=== PATIENT | female | born 1965 | race Caucasian/White ===

== ENCOUNTER 2021-04-28 15:00 | Outpatient (CLI) | payer OTHER, SELFPAY ==
[2021-04-28 15:18] VITALS: BP 131/89; PULSE 74; RESP 16; TEMP 37.1; O2SAT 98; BMI 27.3
[2021-04-28] MEDS: 0.9% Saline Lock 10 ML Syringe IV (15:20)
[2021-04-28 16:08] VITALS: BP 136/90; PULSE 69; RESP 16; TEMP 36.8; O2SAT 98
[2021-04-28 16:58] VITALS: BP 149/87; PULSE 66; RESP 16; TEMP 36.8; O2SAT 100
== END 2021-04-28 17:08 | disposition home or self-care (01) ==
LOC: MS3OUT 15:00 → MS3 15:01
PROVIDERS: PCP Internal Medicine; Referring Provider Nurse Practitioner Adult Health; Visit Provider Nurse Practitioner Adult Health
DX: Z23 Encounter for immunization (principal); U07.1 COVID-19
CPT/HCPCS: J7050; M0245; Q0245; A4216

== ENCOUNTER 2021-05-06 10:13 | Outpatient (CLI) | payer OTHER, SELFPAY ==
[2021-05-06 10:15] LABS: Bacteria 0 SEEN /hpf (None Seen); Mucous, Urine 0 SEEN /hpf (<or=2+); Squamous Epithelial Cells - UA 0 SEEN /hpf (5-10)
[2021-05-06 10:17] LABS: Color, Urine Yellow (Yellow); Glucose, Dipstick Normal (Normal); Ketone-Dipstick Negative (Negative); Leukocyte Esterase-Dipstick 500 /ul (Negative); Nitrite-Dipstick Negative (Negative); Occult Blood-Urine 150 /ul (Negative); Protein-Dipstick 15 mg/dl (Negative); Specific Gravity, Urine 1.015 (1.002-1.030); Urine Bilirubin Dipstick Negative (Negative); Urine Clarity Sl. Cloudy (Clear); Urine Urobilinogen Normal (Normal)
[2021-05-06 10:22] LABS: Red Blood Cells-Urine 0-5 SEEN /hpf (0-5); White Blood Cells 25-50 SEEN /hpf (0-5)
== END 2021-05-06 23:59 | disposition short-term general hospital (02) ==
LOC: LAB 10:13
PROVIDERS: PCP Internal Medicine; Visit Provider Physician Assistant
DX: R30.0 Dysuria (principal); R35.0 Frequency of micturition
CPT/HCPCS: 81001; 87077; 87086; 87088; 87186

== ENCOUNTER → 2021-09-13 | Outpatient (CLI) | payer OTHER, SELFPAY ==
--- NOTE | 2021-09-13 08:45 | BI_ITS ---
MAMMOGRAPHY - BILATERAL SCREENING REASON FOR EXAM: Female, 56 years old. Routine annual screening examination. PERTINENT HISTORY: Mother with breast cancer. TECHNIQUE: Digital bilateral breast med (3D mammographic acquisition) in the CC and MLO projections. 2-D mediolateral oblique (MLO) and craniocaudad (CC) views of both breasts were obtained. CAD: Full Field Digital Mammography with Computer Added Detection was performed. COMPARISON: Comparison is made with prior outside examination dated 07/20/2020. FINDINGS: Breast Composition: The breasts are heterogeneously dense, which may obscure small masses. There are no dominant masses or suspicious calcifications. Stable small benign-appearing bilateral axillary lymph nodes. No other significant abnormalities are identified. There has been no significant change since the prior study. BI/SCRN MAMM (CAD)W/MED BILAT IMPRESSION: Stable bilateral screening mammogram. Yearly follow-up mammogram recommended. (A) ASSESSMENT CATEGORY: BIRADS Category 2: Benign. A letter regarding these results will be sent to the patient by the facility within 30 days. Approximately 10% of breast cancers are not detected by mammography. A normal mammogram should not delay biopsy of a clinically suspicious abnormality. [id number] Electronically Signed: Godfrey Horner MD at 14:32 EDT ,
== END | disposition home or self-care (01) ==
LOC: OPBI 08:45
PROVIDERS: PCP Internal Medicine; Visit Provider Internal Medicine
DX: Z12.31 Encounter for screening mammogram for malignant neoplasm of breast (principal)
CPT/HCPCS: 77063; 77067

== ENCOUNTER → 2022-01-11 | Outpatient (CLI) | payer OTHER, SELFPAY ==
[2022-01-18 13:03] LABS: HPV APTIMA, High Risk Negative (Negative)
== END | disposition home or self-care (01) ==
LOC: LABSPEC 16:10
PROVIDERS: PCP Internal Medicine; Referring Provider Obstetrics & Gynecology; Visit Provider Obstetrics & Gynecology
DX: Z12.4 Encounter for screening for malignant neoplasm of cervix (principal)
CPT/HCPCS: 87624; 88175; G0145

== ENCOUNTER 2022-03-20 07:19 | Day surgery (SDC) | payer OTHER, SELFPAY ==
[2022-03-20] VITALS (7 sets, daily range): BP systolic 96–137; BP diastolic 62–84; PULSE 53–67; RESP 16; TEMP 36.3–36.7; O2SAT 94–99; BMI 30.7
--- NOTE | 2022-03-20 07:21 | H&P.OPEN ---
HPI - General HPI Narrative SAYDA GUPTA, is a 56 F who presents for screening colonoscopy. Patient had previous colonoscopy about 11 years ago due to abdominal pain/constipation within normal limits per patient. Patient denies any family history of colon cancer. Patient has bowel movements every other day denies any blood. Patient denies any chronic abdominal pains, nausea, vomiting, reflux. PFSH Medical History (Updated 03/15/22 @ 14:18 by Maci Resendez) Alcohol use Anxiety Bladder disease Chronic headaches Depression with anxiety Easy bruising History of echocardiogram HTN (hypertension) Hypertension Non-smoker Post-menopausal Preventative health care Right elbow pain Wears glasses Home Medications betamethasone valerate 0.1 % lotion 1 applic topical DAILY PRN skin irritation #60 mL 03/15/21 [Rx Last Taken Unknown] escitalopram oxalate 20 mg tablet 20 mg PO DAILY #90 tabs 03/15/21 [Rx Last Taken Unknown] lisinopril 20 mg-hydrochlorothiazide 25 mg tablet 1 tab PO DAILY #90 tabs 03/15/21 [Rx Last Taken Unknown] diclofenac sodium 3 % topical gel 1 applic topical BID 09/07/21 [History Last Taken Unknown] vibegron 75 mg tablet (Gemtesa) 75 mg PO DAILY 03/15/22 [History Last Taken Unknown] Allergy/AdvReac Type Severity Reaction Status Date / Time Sulfa (Sulfonamide Allergy Mild swelling Verified 03/20/22 08:05 Antibiotics) Family History Mother Breast cancer Father Myocardial infarction, Onset Age: 42 CVA (cerebral vascular accident) Other Diabetes Heart disease Hypertension Surgical History (Updated 01/23/22 @ 09:25 by Mildred Campoverde) History of colonoscopy Social History Smoking Status: Never smoker alcohol intake: current alcohol intake frequency: holidays/special occasions only Alcohol type: wine details: occasionally substance use type: does not use caffeine: Yes what type of physical activity do you participate in: walking frequency: 5-6 times per week additional social history: [employer] Past Medical/Surgical History Planned Operation Planned Operative Procedure/s: CSCOPE OA Previous Hospitalizations/Surgeries HX Hospitalizations: No Any Problems With Anesthesia: No You/Your Family Experience Fever (Hyperthermia) With Anes: No Cholinesterase deficiency: No Cardiovascular Hx Hypertension: Yes (CONTROLLED WITH MED) Respiratory Hx Sleep Apnea: No Hx Respiratory Tract Infection/Cold (presently): No Do You Snore Loudly (louder than talking or can be heard): Yes Do You Often Feel Tired/ Fatigued/ Sleepy Dring Daytime?: No Has Anyone Observed You Stop Breathing During Sleep?: No Result (for STOP score): Positive Smoking Status: Never smoker Neurological Hx Seizures: No Does patient have nerve stimulator: No Reproduction : No Genitourinary Hx Renal Disease: No Endocrine Hx Diabetes: No Miscellaneous Hx Cancer: No Allergies Sulfa (Sulfonamide Antibiotics) Allergy (Mild, Verified 03/20/22 08:05) swelling Discharge Is Pt Admitted From a Senior Living, or a Skilled Nursing: No After D/C, Where Do you Plan to Go: Return Home Physical Exam Const alert, oriented x3 and no apparent distress HEENT normocephalic and head/scalp atraumatic Resp normal respiratory effort Cardio regular rate GI soft to palpation and non-tender; Negative for non-distended Palpation: Negative for guarding Extremity no clubbing, cyanosis or edema Neuro CN's II-XII intact bilaterally Psych mental status grossly normal Assessment & Plan Assessment/Plan (1) Encounter for screening for malignant neoplasm of colon: Surgery Risks - Colonoscopy Risks Include but are not Limited To: Risks include but are not limited to: Bleeding, perforation requiring further surgery, inability to complete colonoscopy requiring barium enema.
[2022-03-20] MEDS: Lactated Ringers 1,000 ML 15 ML IV (08:05)
--- NOTE | 2022-03-20 09:04 | OP.COLON_ITS ---
Patient Name: Vandana Robles Procedure Date: 03/20/2022 8:22 AM Date of : 1965 Age: 56 Procedure: Colonoscopy Indications: Screening for colorectal malignant neoplasm Providers: Bárbara Singh MD Referring MD: Katina Leong MD Medicines: Monitored Anesthesia Care Patient Profile: This is a 56 year old female. Last Colonoscopy: more than 10 years ago. Complications: No immediate complications. Procedure: Pre-Anesthesia Assessment: - Prior to the procedure, a History and Physical was performed, and patient medications and allergies were reviewed. The patient's tolerance of previous anesthesia was also reviewed. The risks and benefits of the procedure and the sedation options and risks were discussed with the patient. All questions were answered, and informed consent was obtained. Prior Anticoagulants: The patient has taken no previous anticoagulant or antiplatelet agents. ASA Grade Assessment: Per anesthesia. After reviewing the risks and benefits, the patient was deemed in satisfactory condition to undergo the procedure. After I obtained informed consent, the scope was passed under direct vision. Throughout the procedure, the patient's blood pressure, pulse, and oxygen saturations were monitored continuously. The pediatric colonoscope was introduced through the anus and advanced to the cecum, identified by the appendiceal orifice, ileocecal valve and palpation. The colonoscopy was performed without difficulty. The patient tolerated the procedure well. The quality of the bowel preparation was good. Scope In: 8:32:23 AM Scope Withdrawal Time 0 hours 11 minutes 50 seconds Scope Out: 8:56:55 AM Total Procedure Duration Time 0 hours 24 minutes 32 seconds Findings: Hemorrhoids were found on perianal exam. Non-bleeding internal hemorrhoids were found. The hemorrhoids were Grade I (internal hemorrhoids that do not prolapse). The entire examined colon appeared normal. Impression: - Hemorrhoids found on perianal exam. - Non-bleeding internal hemorrhoids. - The entire examined colon is normal. - No specimens collected. Recommendation: - Discharge patient to home. - Resume previous diet. - Continue present medications. - Await pathology results. - Repeat colonoscopy in 10 years for screening purposes. Procedure Code(s): --- Professional --- G0121, PT, Colorectal cancer screening; colonoscopy on individual not meeting criteria for high risk Diagnosis Code(s): --- Professional --- Z12.11, Encounter for screening for malignant neoplasm of colon K64.0, First degree hemorrhoids CPT copyright 2017 [employer]. All rights reserved. The codes documented in this report are preliminary and upon hospital coder review may be revised to meet current compliance requirements. MD Bárbara Davalos MD 03/20/2022 9:04:41 AM This report has been signed electronically. Number of Addenda: 0 Note Initiated On: 03/20/2022 8:22 AM
--- NOTE | 2022-03-20 09:06 | OP.CCLET_ITS ---
03/20/2022 Katina Leong MD [address] [place] [address] [place] [address] Re : Colonoscopy procedure for Vandana Travis Dear Dr. Leong This procedure was performed on Sunday, March 20, 2022. My impressions and recommendations are as follows: Impressions : - Hemorrhoids found on perianal exam. - Non-bleeding internal hemorrhoids. - The entire examined colon is normal. - No specimens collected. Recommendations : - Discharge patient to home. - Resume previous diet. - Continue present medications. - Await pathology results. - Repeat colonoscopy in 10 years for screening purposes. My findings are described in the full procedure note, which is enclosed. If I can be of further assistance, please feel free to contact me at Doctor phone number(s): , Work: . Sincerely, MD Bárbara Davalos MD 03/20/2022 9:04:41 AM This report has been signed electronically.
== END 2022-03-20 09:57 | disposition home or self-care (01) ==
LOC: EN 07:19 → AC 07:20
PROVIDERS: PCP Internal Medicine; Referring Provider Internal Medicine; Visit Provider Surgery
PROC: 0DJD8ZZ Inspection of Lower Intestinal Tract, Via Natural or Artificial Opening Endoscopic (ICD-10-PCS; CPT 45378; principal; 2022-03-20 08:25)
DX: Z12.11 Encounter for screening for malignant neoplasm of colon (principal); K64.0 First degree hemorrhoids; I10 Essential (primary) hypertension; N32.9 Bladder disorder, unspecified; Z86.16 Personal history of COVID-19; Z79.899 Other long term (current) drug therapy
CPT/HCPCS: 45378; J7120; J2405

== ENCOUNTER → 2022-04-16 | Outpatient (CLI) | payer OTHER, SELFPAY ==
[2022-04-16 07:52] LABS: Hemoglobin A1c 5.8 % (3.8-5.6)
== END | disposition home or self-care (01) ==
LOC: LAB 07:22
PROVIDERS: PCP Internal Medicine; Referring Provider Internal Medicine; Visit Provider Internal Medicine
DX: E66.9 Obesity, unspecified (principal); Z68.30 Body mass index [BMI] 30.0-30.9, adult
CPT/HCPCS: 36415; 83036

== ENCOUNTER → 2022-04-17 | Outpatient (CLI) | payer OTHER, SELFPAY | END | disposition home or self-care (01) | LOC: LABSPEC 08:00 | PROVIDERS: PCP Internal Medicine; Visit Provider Internal Medicine | DX: K92.1 Melena (principal); R19.7 Diarrhea, unspecified | CPT/HCPCS: 87493; 87506 ==

== ENCOUNTER → 2022-04-19 | Outpatient (CLI) | payer OTHER, SELFPAY ==
[2022-04-19 17:58] LABS: Mucous, Urine 0 SEEN /hpf (<or=2+)
[2022-04-19 18:52] LABS: Color, Urine Amber (Yellow); Glucose, Dipstick Normal (Normal); Ketone-Dipstick Negative (Negative); Leukocyte Esterase-Dipstick 500 /ul (Negative); Nitrite-Dipstick Positive (Negative); Occult Blood-Urine 10 /ul (Negative); Protein-Dipstick 30 mg/dl (Negative); Urine Clarity Clear (Clear); Urine Urobilinogen 8 mg/dl (Normal)
[2022-04-19 19:08] LABS: Urine Bilirubin Dipstick 6 mg/dL (Negative)
[2022-04-19 19:42] LABS: Bacteria RARE /hpf (None Seen); Red Blood Cells-Urine 0 SEEN /hpf (0-5); Squamous Epithelial Cells - UA 0-5 SEEN /hpf (5-10); White Blood Cells 5-10 SEEN /hpf (0-5)
== END | disposition home or self-care (01) ==
PROVIDERS: PCP Internal Medicine; Visit Provider Physician Assistant
DX: R30.0 Dysuria (principal)
CPT/HCPCS: 81001; 87086; 87088

== ENCOUNTER → 2022-05-10 | Outpatient (CLI) | payer OTHER, SELFPAY | END | disposition home or self-care (01) | PROVIDERS: PCP Internal Medicine; Visit Provider Internal Medicine | DX: G47.10 Hypersomnia, unspecified (principal) | CPT/HCPCS: 95810 ==

== ENCOUNTER 2022-05-15 10:09 | Outpatient (RCR) | payer OTHER, SELFPAY | END 2022-05-15 10:10 | disposition home or self-care (01) | LOC: PT 10:09 | PROVIDERS: PCP Internal Medicine; Referring Provider Urology; Visit Provider Urology | DX: R10.2 Pelvic and perineal pain (principal) ==

== ENCOUNTER → 2022-05-25 | Outpatient (CLI) | payer OTHER, SELFPAY | END | disposition home or self-care (01) | LOC: SL 13:04 | PROVIDERS: PCP Internal Medicine; Visit Provider Internal Medicine | DX: R06.83 Snoring (principal); R51.9 Headache, unspecified; R40.0 Somnolence; G47.30 Sleep apnea, unspecified ==

== ENCOUNTER 2022-06-26 16:30 | Outpatient (RCR) | payer OTHER, SELFPAY ==
--- NOTE | 2022-02-20 12:59 | HP.PTEVAL ---
Patient's Visit Information SAYDA GUPTA is a 56 year old F referred to Physical Therapy by Dr. Marilyn Ashraf MD with a diagnosis of MIXED INCONTINENCE. Date of Evaluation: 02/20/22 Physical Therapist: Natasha Mcgowan PT, Cert MDT - Visit Plan Frequency: 1x/Week Duration: 8-10 WKS Plan: MANUAL PF THERAPY FOR STRENGTHENING, LENGTHENING/RELAXATION AND ENDURANCE TRAINING. URINARY RETENTION, URGENCY AND STRESS INCONTINENCE EDUCATION. CONSIDER INTERNAL OR EXTERNAL PF BIOFEEDBACK WITH EQUIPMENT. TRAINING IN COORDINATION OF PELVIC FLOOR MUSCULATURE WITH CORE (TRANSVERSE ABDOMINUS) STRENGTHENING. TRAINING IN ABDOMINAL CAVITY PRESSURE MGMT WITH ADL'S TO DECREASE ANY URINARY LEAKING. CORE STRENGTHENING. ROSA LE ROM, STRETCHING AND STRENGTHEING. HEP INSTRUCTION. 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 Present symptoms: SOME LOW BACK PAIN BUT REPORTS IF SHE TAKES CARE OF IT IT GOES AWAY. REPORTS SHE IS HERE FOR URINARY LEAKING. PATIENT ALSO REPORTS URGE INCONTINENCE. Present since: YEARS. Pain Scale: LBP: WORST 5/10, LEAST 0/10. Currently: 0/10. Getting better, worse, or staying the same: LBP IS UNCHANGING. INCONTINENCE IS GETTING WORSE. Commenced as a result of: PATIENT RELATES HER LBP TO BEING ON HER FEET ALL DAY AT WORK. NO APPARENT REASON FOR THE INCONTINENCE. Worse: INCONTINENCE: TRIPPING ON THE SIDEWALK, STUMBLING, COUGHING, SNEEZING, LAUGHING, THROWING A BALL, SOMETIMES JUST WALKING HOME FROM WORK. Better: NEW MEDICINE PRESCRIBED ABOUT 2 WKS AGO. Disturbed sleep: NO. Previous history/Previous treatment: PELVIC FLOOR THERAPY X 1-2 SESSIONS 2019. NO BACK SURGERY, NO SEBAS'S. LBP HAS BEEN SELF MANAGED. Treatment this episode: MEDICINE PRESCRIBED BY DR. ASHRAF. Gait: NORMAL. Bowel Dysfunction: NO. Accidents: NO MAJOR MVA'S. Unexplained weight loss: NO. Imaging: PATIENT REPORTS RECENT TESTING SHOWS GOOD BLADDER EMPTYING. PMH/Recent major surgery: Depression with anxiety. HTN (hypertension). UNREPAIRED R ACL TEAR. - Objective Sitting/Standing Posture: FH. RSH'S. NORMAL LUMBAR LORDOSIS. NO RELEVENT LATERAL SHIFT. Active Correction of posture: BETTER. Other Observations: INDEP GAIT AND TRANSFERS. Sensory deficit: ROSA LE LIGHT TOUCH SENSATION GROSSLY INTACT AND SYMMETRICAL. ROM deficit: ROSA LE'S WFL EXCEPT. Motor deficit: ROSA LE'S GROSSLY 5/5 WITH MMT'ING. Dural Signs: NEGATIVE ROSA LE'S. Lumbar mvmt loss: flex - NIL. ext - MOD. R SG - MOD. L SG - MOD. PATIENT DENIES INCREASED PAIN WITH LUMBAR ROM TESTING. Core strength: FAIR. Palpation: NO ACUTE LOW BACK OR HIP TENDERNESS WITH EXTERNAL PALPATION. INTERNAL MANUAL PELVIC FLOOR EXAM REVEALS 3/5 STRENGTH WITH 4 SEC ENDURANCE X 4 REPS. NO TENDERNESS WITH PALPATION BUT ROSA HIP ADDUCTOR TIGHTNESS EVIDENT. TREATMENT: NEUROMUSCULAR REEDUCATION - RETRAINING OF MVMT AND POSTURE FOR SITTING, LYING AND STANDING ACTIVITIES. - Goals Goal 1:: DECREASE URINARY LEAKAGE EPISODES TO 2 OR LESS PER DAY Goal Time Frame: 4-6 Weeks Goal 2:: PATIENT WILL SUCCESSFULLY DELAY VOIDING FOR 30 MINUTES WHEN URGENCY OCCURS Goal Time Frame: 2-4 Weeks Goal 3:: PATIENT WILL HAVE INCREASED PELVIC FLOOR MUSCLE STRENGTH GRADE TO 5/5 Goal Time Frame: 8-12 Weeks Goal 4:: PATIENT WILL DEMONSTRATE 10 CONSISTENT AND CONSECUTIVE 10 SECOND PELVIC FLOOR MUSCLE CONTRACTIONS TO DEMONSTRATE IMPROVED PELVIC FLOOR ENDURANCE. Goal Time Frame: 8-12 Weeks Goal 5:: DEVELOP HEALTHY FLUID INTAKE HABITS AND IMPROVE BLADDER CAPACITY Goal Time Frame: 4-6 Weeks Goal 6:: PATIENT WILL BE INDEP WITH A HEP/HOME INSTRUCTIONS FOR CONTINUED IMPROVEMENT ONCE FORMAL PHYSICAL THERAPY CONCLUDES Goal Time Frame: 8-12 Weeks - Anticipated Interventions Patient/Client Instruction: Educate patient on: Condition, Plan of Care, Risk Factors For the Purpose of:: To improve self management Therapeutic Exercise to Include: Strength training, Endurance training, Postural training, Flexibilty training, Neuromotor development For the Purpose of:: To improve muscle performance and motor function, To increase tolerance to activity/condition/position, To improve ability of physical actions for home/community/work/leisure Thank you for the opportunity to evaluate your patient. For Medicare and Medicare HMO plans, please review the plan of care and approve it. It will need to be FAXED BACK to us at [phone] for Medicare purposes. For Medicare only, by signing this I certify the plan of care. Please let me know if there are questions or concerns regarding this plan of care. Physician Signature: Date:
--- NOTE | 2022-05-04 09:26 | HP.PT.NRP ---
SAYDA GUPTA was seen in my office for initial evaluation on 02/20/22. The following Plan of Care was established for this patient: Initial Frequency: 1x/Week Initial Duration: 8-10 WKS Patient/Client Instruction: Educate patient on: Condition, Plan of Care, Risk Factors For the Purpose of:: To improve self management Therapeutic Exercise to Include: Strength training, Endurance training, Postural training, Flexibilty training, Neuromotor development For the Purpose of:: To improve muscle performance and motor function, To increase tolerance to activity/condition/position, To improve ability of physical actions for home/community/work/leisure This patient was last seen in our office 02/20/22. Pertinent comments regarding their Physical therapy will appear below: This patient has not returned to Physical Therapy and is appropriate to return to MD for further follow-up as needed. At this point I will be discontinuing this patient from physical therapy. I would be happy to see this patient again in the future if found appropriate by the physician. Thank you! Natasha Mcgowan, PT, Cert MDT
--- NOTE | 2022-08-01 11:06 | HP.PT.NRP ---
SAYDA GUPTA was seen in my office for initial evaluation on 02/20/22. The following Plan of Care was established for this patient: Initial Frequency: 1x/Week Initial Duration: 8-10 WKS Patient/Client Instruction: Educate patient on: Condition, Plan of Care, Risk Factors For the Purpose of:: To improve self management Therapeutic Exercise to Include: Strength training, Endurance training, Postural training, Flexibilty training, Neuromotor development For the Purpose of:: To improve muscle performance and motor function, To increase tolerance to activity/condition/position, To improve ability of physical actions for home/community/work/leisure This patient was last seen in our office 06/26/22. Pertinent comments regarding their Physical therapy will appear below: This patient has not returned to Physical Therapy and is appropriate to return to MD for further follow-up as needed. At this point I will be discontinuing this patient from physical therapy. I would be happy to see this patient again in the future if found appropriate by the physician. Thank you! Natasha Mcgowan, PT, Cert MDT
== END 2022-06-26 23:59 | disposition home or self-care (01) ==
LOC: PT 16:30
PROVIDERS: PCP Internal Medicine; Referring Provider Urology; Visit Provider Urology
DX: N39.46 Mixed incontinence (principal)
CPT/HCPCS: 97162; 97530

== ENCOUNTER → 2022-07-18 | Outpatient (CLI) | payer OTHER, SELFPAY ==
--- NOTE | 2022-07-18 08:55 | RAD_ITS ---
STUDY: X-RAY - LEFT KNEE REASON FOR EXAM: Female, 57 years old. Left knee pain after riding a bike. TECHNIQUE: 4 view(s) of the knee. COMPARISON: None. FINDINGS: Normal visualized distal femur. Normal visualized proximal tibia and fibula. Normal proximal tibiofibular articulation. There is no acute fracture, dislocation or destructive osseous pathology. There is mild degenerative arthrosis of the medial femorotibial compartment. Normal lateral femorotibial compartment. There is mild degenerative arthrosis of the patellofemoral articulation. There is no demonstrated joint effusion. The soft tissue structures are unremarkable. RAD/Knee 4 or More Views IMPRESSION: Degenerative arthrosis. Electronically Signed: Marlo Sheikh DO at 16:50 EDT ,
== END | disposition home or self-care (01) ==
LOC: RAD 08:48
PROVIDERS: PCP Internal Medicine; Visit Provider Internal Medicine
DX: M25.562 Pain in left knee (principal)
CPT/HCPCS: 73564

== ENCOUNTER → 2022-09-12 | Outpatient (CLI) | payer OTHER, SELFPAY | END | disposition home or self-care (01) | LOC: MTRAD 10:40 | PROVIDERS: PCP Internal Medicine; Referring Provider Chiropractor; Visit Provider Chiropractor | DX: M50.30 Other cervical disc degeneration, unspecified cervical region (principal); M99.05 Segmental and somatic dysfunction of pelvic region; M99.03 Segmental and somatic dysfunction of lumbar region | CPT/HCPCS: 72110 ==

== ENCOUNTER → 2022-09-29 | Outpatient (CLI) | payer OTHER, SELFPAY ==
--- NOTE | 2022-09-29 10:50 | BI_ITS ---
MAMMOGRAPHY - BILATERAL SCREENING REASON FOR EXAM: Female, 57 years old. Routine annual screening examination. PERTINENT HISTORY: Mother with breast cancer. TECHNIQUE: Digital bilateral breast med (3D mammographic acquisition) in the CC and MLO projections. 2-D mediolateral oblique (MLO) and craniocaudad (CC) views of both breasts were obtained. CAD: Full Field Digital Mammography with Computer Added Detection was performed. COMPARISON: Comparison is made with prior study dated September 13, 2021. FINDINGS: Breast Composition: The breasts are heterogeneously dense, which may obscure small masses. There are no dominant masses or suspicious calcifications. Stable small benign-appearing bilateral axillary lymph nodes. No other significant abnormalities are identified. There has been no significant change since the prior study. BI/SCRN MAMM (CAD)W/MED BILAT IMPRESSION: Stable bilateral screening mammogram. Yearly follow-up mammogram recommended. (A) ASSESSMENT CATEGORY: BIRADS Category 2: Benign. A letter regarding these results will be sent to the patient by the facility within 30 days. Approximately 10% of breast cancers are not detected by mammography. A normal mammogram should not delay biopsy of a clinically suspicious abnormality. [id number] Electronically Signed: Godfrey Horner MD at 12:44 EDT ,
== END | disposition home or self-care (01) ==
LOC: OPBI 10:49
PROVIDERS: PCP Internal Medicine; Referring Provider Obstetrics & Gynecology; Visit Provider Obstetrics & Gynecology
DX: Z12.31 Encounter for screening mammogram for malignant neoplasm of breast (principal); Z80.3 Family history of malignant neoplasm of breast
CPT/HCPCS: 77063; 77067

== ENCOUNTER → 2022-12-01 | Outpatient (CLI) | payer OTHER, SELFPAY ==
--- NOTE | 2022-12-01 11:30 | RAD_ITS ---
STUDY: X-RAY - RIGHT KNEE REASON FOR EXAM: Female, 57 years old. Pain following injury. TECHNIQUE: 4 view(s) of the knee. COMPARISON: None. FINDINGS: Normal visualized distal femur. Normal visualized proximal tibia and fibula. Normal proximal tibiofibular articulation. Normal medial femorotibial compartment. Normal lateral femorotibial compartment. Normal patellofemoral articulation. The soft tissue structures are unremarkable. RAD/Knee 4 or More Views IMPRESSION: Normal x-ray examination of the knee. Electronically Signed: Godfrey Horner MD at 12:02 EDT ,
== END | disposition home or self-care (01) ==
LOC: MTRAD 11:28
PROVIDERS: PCP Internal Medicine; Referring Provider Physician Assistant; Visit Provider Physician Assistant
DX: M25.561 Pain in right knee (principal)
CPT/HCPCS: 73564

== ENCOUNTER → 2022-12-27 | Outpatient (CLI) | payer OTHER, SELFPAY ==
--- NOTE | 2022-12-27 15:07 | MRI_ITS ---
EXAM: MR RIGHT LOWER EXTREMITY WITHOUT INTRAVENOUS CONTRAST, KNEE CLINICAL INDICATION: pain TECHNIQUE: Multiplanar and multisequence MR images of the right knee without intravenous contrast. COMPARISON: No relevant prior studies available. FINDINGS: BONES/JOINTS: Moderate joint effusion. Subchondral marrow signal alterations of the patella reflecting overlying chondral disease. No other marrow signal alterations. No malalignment. EXTENSOR MECHANISM: Unremarkable. MEDIAL MENISCUS: Torn posterior root ligament of the medial meniscus with associated 4 mm of peripheral extrusion of the body segment of the medial meniscus. LATERAL MENISCUS: Unremarkable. MEDIAL CAPSULE/SUPPORTING STRUCTURES: Unremarkable. Intact. LATERAL CAPSULE/SUPPORTING STRUCTURES: Unremarkable. Lateral collateral ligamentous complex, inclusive of the popliteal tendon, are intact. ANTERIOR CRUCIATE LIGAMENT: Unremarkable. Intact. POSTERIOR CRUCIATE LIGAMENT: Unremarkable. Intact. MUSCLES: Unremarkable. CARTILAGE: Areas of the up to high-grade chondral loss/disease at the median ridge of the patella extending to the adjacent central aspect of the medial and lateral patellar facet with subchondral cystic changes. FLUID: Moderate suprapatellar joint effusion; Gee''s cyst measuring 7.2 x 2.9 cm with evidence of inferior leakage or rupture. MRI/Lower Ext Joint Only (Routine) IMPRESSION: 1. Torn posterior root ligament of the medial meniscus with associated 4 mm of peripheral extrusion of the body segment of the medial meniscus. 2. Moderate suprapatellar joint effusion and Gee''s cyst cyst measuring 7.2 x 2.9 cm with evidence of inferior leakage or rupture. Electronically Signed: Michael Uribe MD at 21:48 EDT ,
== END | disposition home or self-care (01) ==
LOC: MRI 14:53
PROVIDERS: PCP Internal Medicine; Referring Provider Physician Assistant; Visit Provider Physician Assistant
DX: M23.91 Unspecified internal derangement of right knee (principal); M25.561 Pain in right knee
CPT/HCPCS: 73721

== ENCOUNTER 2023-01-04 15:00 | Outpatient (RCR) | payer OTHER, SELFPAY ==
--- NOTE | 2022-11-01 19:41 | HP.PTEVAL ---
Patient's Visit Information Visit Information Visit Information: SAYDA GUPTA is a 57 year old F referred to Physical Therapy by Dr. Thom Chandra MD with a diagnosis of L knee OA. Date of Evaluation: 11/01/22 Physical Therapist: Dixon Guerra DPT Visit Plan Frequency: 2x /Week Duration: 4 Weeks Plan: Start with progressive ROM, add in quad, HS and glute medius strengthening. Add in HS, quad and hip flexor stretching. Subjective Subjective: Pt. is here today for her initial evaluation with diagnosis of Unilateral primary knee OA, L knee. Pt. repots having increased pain for a few months now. She had a flare up, but was unsure what caused it. She saw ortho who recommended gel injections. She has had 2 at this point in time which she reports having been helpful, pt. to have 3rd tomorrow. Pt. denies N/T. She had meniscus surgery on her RLE, years ago. Pt. reports increased pain with prolonged standing, stairs, squatting and lunging. 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 Pt. did do some biking, not aggresively and tolerated very well on her vacation trip. Pt. is interested in being instructed in exercises to increase her LE strength in order to progress back to all daily and recreational activities without limitations. Pain L knee: Pain Intensity (Out of 10): 0 Pain Intensity Range: 4 Objective Objective: POSTURE: Pt. has fairly normal posture in stance. NO major valgus or varus. She does has slight lateral wt. shift to RLE in stance with slight lack in TKE on L side. PALPATION: Pt. had no pain with palpation throughout L knee joint line. No popliteal pain with palpation. NEURO: normal throughout BLEs. ROM: L knee: 0-4-124deg. R knee 0-0-129deg. Pt. has tight HS and hip flexors bilaterally MMT: RLE: 5/5 throughout. LLE: ankle: 5/5 throughout; knee: ext 4+/5, flexion 4+/5; hip: flexion 4+/5, abd 4+/5. ext 4+/5. GAIT: pt. ambulates with fairly normal gait pattern, slight decrease in R step length. No major varus/valgus in stance phase of LLE. STAIRS: Pt. has increased pain with descending during L stance phase. Balance/Special Test Scores Lower Extremity Functional Score: 55 Goals Goal 1:: LTG: pt. to be I with HEP. Goal Time Frame: 4-6 Weeks Goal 2:: STG: Pt. to have full L knee ROM symmetrical to R knee without increase in symptoms. Goal Time Frame: 2 Weeks Goal 3:: LTG: Pt to have 5/5 strength throughout BLEs. Goal Time Frame: 4-6 Weeks Goal 4:: LTG: Pt. to have normal gait pattern without increase in symptoms. Goal Time Frame: 4-6 Weeks Goal 5:: LTG: pt. to complete all work activities without increase in symptoms. Goal Time Frame: 4-6 Weeks Rehabilitation Potential Physical Therapy Diagnosis: Pt. has signs and symptoms consistent with L knee OA. Pt. has marked limited end range flexion and extension as well has some LLE weakness of her quads, HS and glute medius. Pt. would benefit from PT to address the above limitations progressing back to all reactional and work activities without limitations. Rehabilitation Potential: Good Anticipated Interventions Patient/Client Instruction: Educate patient on: Condition, Plan of Care, Risk Factors and Benefits of Fitness Program For the Purpose of:: To improve decision making, To facilitate caregiver knowledge, To improve self management, To prevent re-injury and To improve ability to perform tasks related to life management Therapeutic Exercise to Include: Coordination, Body mechanics, Flexibilty training, Passive ROM, Active ROM and Dynamic Lumbar Stabilization For the Purpose of:: To decrease pain, To increase ROM, To improve nutrient delivery to tissue, To increase oxygenation perfusion, To improve muscle performance and motor function, To improve gait and locomotor functions, To improve health of tissue, To decrease soft tissue restriction and To increase flexibility/ROM Text: Thank you for the opportunity to evaluate your patient. For Medicare and Medicare HMO plans, please review the plan of care and approve it. It will need to be FAXED BACK to us at [phone] for Medicare purposes. For Medicare only, by signing this I certify the plan of care. Please let me know if there are questions or concerns regarding this plan of care. Physician Signature: Date:
== END 2023-01-04 19:00 | disposition home or self-care (01) ==
LOC: PT 15:00
PROVIDERS: PCP Internal Medicine; Referring Provider Orthopaedic Surgery Sports Medicine; Visit Provider Orthopaedic Surgery Sports Medicine
DX: M17.12 Unilateral primary osteoarthritis, left knee (principal)
CPT/HCPCS: 97110; 97161

== ENCOUNTER 2023-04-05 17:48 | Emergency (ER) | payer OTHER, SELFPAY ==
[2023-04-05 17:50] VITALS: BP 139/98; PULSE 91; RESP 15; TEMP 36.4; O2SAT 98; BMI 29.2
--- NOTE | 2023-04-05 18:25 | ED.RN ---
NO OLD EKG
[2023-04-05 18:38] LABS: Absolute Lymphocyte Count 1.26 X10^3/uL (0.83-4.51); Absolute Neutrophil Count 2.6 X10^3/uL (2.0-7.7); Basophil# 0.02 X10^3/uL; Basophil% 0.5 % (0-1); Hematocrit 37.6 % (37-47); Hemoglobin 12.6 g/dL (12.0-15.0); Lymphocyte # 1.26 X10^3/ul (0.83-4.51); Mean Corp Hgb Conc 33.5 g/dL (32-36); Mean Corpuscular Hgb 29.3 pg (27.0-32.0); Mean Corpuscular Volume 87.4 fL (81-99); Mean Platelet Vol. 9.9 fl (6.2-12.0); Monocyte# 0.41 X10^3/uL; Monocyte% 9.4 % (0-10); NRBC Flagged by Analyzer 0 % (0-5); Neutrophil # 2.64 X10^3/uL (2.7-7.7); Neutrophil % 60.9 % (47-70); Platelet Count 289 K/mm3 (150-450); RBC Distribution Width CV 12.9 % (11.6-14.6); RBC Distribution Width SD 40.6 fl (35.1-43.9); White Blood Count 4.3 K/mm3 (4.4-11.0)
[2023-04-05 18:53] LABS: Anion Gap 1 (5-15); BUN 18 mg/dL (7-18); BUN/Creat Ratio 22.4 RATIO (10-20); Calcium,Total 9.2 mg/dL (8.5-10.1); Chloride 108 mmol/L (98-107); EST Glomerular Filtration Rate 78 mL/min (>60); Est Glom Filt Rate - Afr Amer 94 mL/min (>60); Estimated Creatinine Clearance 81.08 ml/min; Glucose 95 mg/dL (74-106); Potassium 4.2 mmol/L (3.5-5.1); Sodium Level 138 mmol/L (136-145)
[2023-04-05 18:58] LABS: Prothrombin Time (Protime)PT. 12.8 SECONDS (11.7-14.9)
[2023-04-05 20:36] VITALS: BP 128/87; PULSE 82; RESP 16; O2SAT 99
[2023-04-05 22:00] VITALS: BP 032/74; BP 132/74; PULSE 80; RESP 16; O2SAT 100
--- NOTE | 2023-04-05 23:49 | EDS_ITS ---
HPI History of Present Illness Chief Complaint: Abn Labs Narrative Narrative: 57-year-old female presenting with headaches which seem to be worse in the evenings. Recent history of hyponatremia. She states that the lowest it has been is about 128. Patient reports that she does exercise and she does drink a lot of water. She does not drink as much energy drinks and electrolyte replacement. She states that she recently had this lab work which showed a hyponatremia and with her headaches she decided to call her PCP who told her to come to the emergency room out of concern for increased intracranial pressure. Patient states she does not have a headache now. She is not having morning headaches. No history of migraines. No fevers or chills. She again notes that her headaches are worse at the end of the day after working. She does also state that she has worked some long days up to 14 hours. Patient also relates an episode of near syncope which happened over the course of last week however apparently she had been using some stool softeners and was trying to the bathr oom and had some increased intra-abdominal pressure which caused her to feel near syncopal. They checked her blood pressure at home and it was in the 80s. This resolved and she has not had a return this. No chest pain or shortness of breath. Again no fevers or chills. She states she feels well currently. [facility] Medical History Alcohol use Anxiety Bilateral knee pain Bladder disease Bloody stools Borderline type 2 diabetes mellitus Chronic headaches CPAP (continuous positive airway pressure) dependence Depression with anxiety Diarrhea Easy bruising History of echocardiogram HTN (hypertension) Hypersomnolence Hypertension Left knee pain Migraines Non-smoker Obesity (BMI 30-39.9) FRANKLYN (obstructive sleep apnea) Osteoarthritis of left knee Post-menopausal Psoriasis Right elbow pain Sleep apnea Wears glasses Home Medications clobetasol 0.05 % scalp solution 1 applic topical QAM AND QPM #50 mL 03/31/22 [Rx Last Taken Unknown] diclofenac sodium 3 % topical gel 2 g topical BID PRN pain #100 grams 11/29/22 [Rx Last Taken Unknown] estradiol 0.01% (0.1 mg/gram) vaginal cream See Rx Instructions vaginal .COMPLEX #42.5 grams 01/16/23 [Rx Last Taken Unknown] lisinopril 20 mg-hydrochlorothiazide 25 mg tablet 1 tab PO DAILY #90 tabs 02/02/23 [Rx Last Taken Unknown] escitalopram oxalate 20 mg tablet 10 mg PO DAILY 04/05/23 [History Last Taken Unknown] lisinopril 20 mg tablet 20 mg PO DAILY 04/05/23 [History Last Taken Unknown] meloxicam 15 mg tablet 15 mg PO DAILY PRN pain 04/05/23 [History Last Taken Unknown] Allergy/AdvReac Type Severity Reaction Status Date / Time Sulfa (Sulfonamide Allergy Mild swelling Verified 04/05/23 17:50 Antibiotics) Family History Mother Breast cancer Father Myocardial infarction, Onset Age: 42 CVA (cerebral vascular accident) Other Diabetes Heart disease Hypertension Surgical History History of colonoscopy Social History current occupational status: employed 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 Smoking Status: Never smoker alcohol intake: current alcohol intake frequency: a few times a week Alcohol type: wine details: occasionally substance use type: does not use caffeine: Yes what type of physical activity do you participate in: walking frequency: 5-6 times per week additional social history: - Keyshawn [employer]OLGU[employer] [facility] ED Constitutional Constitutional ED: Denies chills, fever(s) or sweats Eyes Eyes: Denies blurry vision or change in vision ENT ENT ED: Denies ear pain or sore throat Cardiovascular Cardiovascular: Denies chest pain, palpitations or racing heartbeat Respiratory/Chest Respiratory/Chest: Denies cough, dyspnea or sputum Gastrointestinal Gastrointestinal: Denies abdominal pain, constipation, diarrhea, nausea or vomiting Genitourinary Genitourinary ED: Denies dysuria, hematuria or urinary frequency Musculoskeletal Musculoskeletal: Denies arthralgias, myalgias or neck pain Integumentary Denies abscess, Abrasions or rash Neurologic Neurologic: Reports headache(s); Denies paresthesias or weakness Psychiatric Psychiatric: Denies anxiety, depression, suicidal ideation or suicidal thoughts Endocrine Endocrinology: Denies polydipsia or polyuria EXAM Physical Exam Const Vital Signs: 04/05/23 17:50 04/05/23 20:23 04/05/23 20:36 Temperature 97.6 F L Temperature Source Temporal Pulse Rate 91 82 Respiratory Rate 15 16 Respiratory Pattern Normal Blood Pressure 139/98 H 128/87 H Blood Pressure Mean 111 100 Pulse Ox 98 99 Oxygen Delivery Method Room Air Room Air 04/05/23 22:00 04/05/23 22:00 Temperature Temperature Source Pulse Rate 80 80 Respiratory Rate 16 16 Respiratory Pattern Blood Pressure 132/74 H 032/74 Blood Pressure Mean 93 60 Pulse Ox 100 100 Oxygen Delivery Method Positive well nourished General Appearance ED: NAD; Negative for pallor HEENT Reports moist mucous membranes Negative for trauma Eyes PERRL and EOMs intact bilaterally Neck no lymphadenopathy Chest Wall inspection of chest normal Resp normal respiratory effort and clear to auscultation bilaterally Auscultation: Negative for rales, rhonchi or wheezes Cardio regular rate and regular rhythm Neuro oriented x3 and CN's II-XII intact bilaterally Sensorium / Orientation: alert Psych mental status grossly normal Skin no rashes or lesions noted General Skin Exam: Negative for jaundice or pallor MDM MDM MDM Narrative Medical decision making narrative: 57-year-old well-appearing female presenting with resolved headache and recent history of hyponatremia. Patient states she has been increasing her salt in her diet. CBC and BMP are unremarkable today her sodium appears to be normal. On examination she has no focal neurologic deficit or lateralizing signs or symptoms. Strength 5/5 throughout. Sensation intact throughout. Patient denies headache. Exam otherwise unremarkable. Counseled patient I do not believe she needs a CT scan of her head which was what she was initially sent for. Counseled her that if she is going to continue to drink plenty of water that she should have some electrolyte replacement as well and she sounds understanding of this. Patient will be discharged home in stable condition. Impression: 1. Headaches 2. history of hyponatremia Lab Data Labs: Laboratory Results - last 24 hr 04/05/23 18:30 WBC 4.3 L RBC 4.30 Hgb 12.6 Hct 37.6 MCV 87.4 MCH 29.3 MCHC 33.5 RDW Std Deviation 40.6 RDW Coeff of Garth 12.9 Plt Count 289 MPV 9.9 Immature Gran % (Auto) 0.200 Neut % (Auto) 60.9 Lymph % (Auto) 29.0 Lipscomb % (Auto) 9.4 Eos % (Auto) 0.0 Baso % (Auto) 0.5 Absolute Neuts (auto) 2.6 Absolute Lymphs (auto) 1.26 Nucleated RBC % 0 PT 12.8 INR 1.0 Sodium 138 Potassium 4.2 Chloride 108 H Carbon Dioxide 29.0 Anion Gap 1 L BUN 18 Creatinine 0.80 Estim Creat Clear Calc 81.08 Est GFR (MDRD) Af Amer 94 Est GFR (MDRD) Non-Af 78 BUN/Creatinine Ratio 22.4 H Glucose 95 Calcium 9.2 Discharge Plan Triage Chief Complaint: Abn Labs ED Provider: Soto Teresa Dx/Rx/DC Orders Instructions: ED Hyponatremia Prescriptions: No Action clobetasol 0.05 % solution 1 applic topical QAM AND QPM Qty: 50 1RF estradiol 0.01 % (0.1 mg/gram) cream See Rx Instructions vaginal .COMPLEX Qty: 42.5 2RF Hold Instructions: NEVER USED IT Rx Instructions: small amount as directed vaginal every other day X 4 weeks then twice a week; diclofenac sodium 3 % gel 2 g topical BID PRN (Reason: pain) Qty: 100 2RF lisinopril 20 mg tablet 20 mg PO DAILY meloxicam 15 mg tablet 15 mg PO DAILY PRN (Reason: pain) escitalopram oxalate 20 mg tablet 10 mg PO DAILY lisinopril-hydrochlorothiazide 20-25 mg tablet 1 tab PO DAILY Qty: 90 3RF Hold Instructions: Order Changed Primary Care Provider: Kasandra Mena Referrals: Kasandra Mena, [employer] [facility] [Primary Care Provider] - Disposition Disposition: Home, Self Care Discharge Date/Time: 04/05/23 22:06
== END 2023-04-05 22:06 | disposition home or self-care (01) ==
PROVIDERS: Emergency Provider Student in an Organized Health Care Education/Training Program; PCP Nurse Practitioner Family; Visit Provider Student in an Organized Health Care Education/Training Program
DX: R51.9 Headache, unspecified (principal); E87.1 Hypo-osmolality and hyponatremia; I10 Essential (primary) hypertension; Z99.89 Dependence on other enabling machines and devices; Z79.899 Other long term (current) drug therapy; F41.8 Other specified anxiety disorders; R55 Syncope and collapse
CPT/HCPCS: 80048; 85025; 85610; 99283; A4216